=== PATIENT | female | born 1980 | race Caucasian/White ===

== ENCOUNTER 2016-07-07 20:53 | Emergency (ER) | payer MEDICAID ==
[2016-07-07] MEDS ORDERED: OPTIRAY 350 100 ML VIAL HMH IV ONE (20:54)
[2016-07-08] MEDS ORDERED: KETOROLAC 30 MG/ML VIAL ONE (02:12)
== END 2016-07-08 04:15 | disposition home or self-care (01) ==
LOC: ER 20:53
DX: N20.1 Calculus of ureter (principal); F17.210 Nicotine dependence, cigarettes, uncomplicated
CPT/HCPCS: 36415; 74177; 80053; 81001; 81025; 83690; 85025; 87088; 96374

== ENCOUNTER 2016-07-16 04:51 | Emergency (ER) | payer MEDICAID | END 2016-07-16 06:23 | disposition home or self-care (01) | LOC: ER 04:51 | DX: N20.2 Calculus of kidney with calculus of ureter (principal) | CPT/HCPCS: 36415; 80053; 81001; 83690; 84703; 85025; 87088; 96374; 96375 ==